=== PATIENT | female | born 1995 | race Two or more races ===

== ENCOUNTER 2021-12-08 04:17 | Emergency (ER) | payer SELFPAY ==
[~2021-12-08] VITALS: Ht 162.6 cm; Wt 54.4 kg
[2021-12-08 04:22] VITALS: BP 113/60
--- NOTE | 2021-12-08 04:22 | NUR ---
[id number] FROM HOME C/O R FOOT PAIN. S/P R FOOT BUNION SURGERY 10 HRS AGO BUNION SURGERY 12/07/21 - [facility] FROM [facility]. BOTTLE FEEDER TOOK PERCOCET & TYLENOL WITH NO RELIEF. PT A/OX4. TOLERATING R/A WELL WITH RESPIRATORY DISTRESS. CONNECTED PT TO POX AND MONITOR.
--- NOTE | 2021-12-08 04:31 | NUR ---
DR. PHILL ZAZUETA AT PT'S BEDSIDE FOR EVAL
[2021-12-08] MEDS ORDERED: HYDROMORPHONE 1 MG/1 ML DISP.SYRIN ONE (04:37)
[2021-12-08] MEDS ORDERED: HYDROMORPHONE 1 MG/1 ML DISP.SYRIN IM ONE (05:00)
--- NOTE | 2021-12-08 05:44 | NUR ---
Awaiting for pt to be picked up for DC. Written and verbal after care instructions given. Patient verbalizes understanding of instruction.
--- NOTE | 2021-12-08 06:04 | NUR ---
Patient discharged to home in stable condition. Written and verbal after care instructions given. Patient verbalizes understanding of instruction. PT ambulatory with a steady gait with crutches.
== END 2021-12-08 06:05 | disposition home or self-care (01) ==
LOC: ER 04:27
DX: G89.18 Other acute postprocedural pain (principal); M79.671 Pain in right foot; Z98.890 Other specified postprocedural states
CPT/HCPCS: 99283; 96372; J1170